=== PATIENT | female | born 1935 | race Caucasian/White ===

== ENCOUNTER 2019-04-07 10:39 | Observation (INO) | payer MEDICARE, BC ==
[2019-04-07] MEDS ORDERED: ACETAMINOPHEN 325 MG TABLET PO ONE (11:46)
--- NOTE | 2019-04-07 11:47 | RADIOLOGY REPORT (SQ) ---
EXAM DESCRIPTION: HIP RIGHT AP/LATERAL COMPLETED DATE/TIME: 04/07/2019 11:29 am REASON FOR STUDY: pain s/p fall COMPARISON: None. NUMBER OF VIEWS: Two views. TECHNIQUE: AP pelvis and additional frog-leg view of the right hip. LIMITATIONS: None. FINDINGS: Bones are osteopenic. Nondisplaced fractures of the right superior and inferior pubic brittanie i. No other fracture identified. No dislocation. IMPRESSION: Right pubic rami fractures. TECHNICAL DOCUMENTATION: JOB ID: [id number] [employer]- All Rights Reserved Reading location - IP/workstation name: [email or web address]
--- NOTE | 2019-04-07 11:50 | ER Document Report ---
ED Fall - General Chief Complaint: Fall Injury Stated Complaint: FALL/RIGHT HIP PAIN/KNEE PAIN Time Seen by Provider: 04/07/19 11:29 Primary Care Provider: OMAR VILLARREAL III, MD [Primary Care Provider] - Follow up as needed Notes: 84-year-old overall healthy female presents to the emergency department after a fall at 2100 last night. Patient states that she was down for several hours and called her kids this morning to let him know that she would not be able to attend [facility]. Her children then went to assess her and deemed that it would be best for EMS to transport her here to the emergency department. Patient does complain of severe pain with any movement. Patient states she is unable to ambulate at all. She is able to sit down but does have pain. Denies any dizziness or lightheadedness, denies being on anticoagulation. Patient does also complain of a skin tear on her left lower anterior leg just distal to the knee. No other complaints - Related data Allergies/Adverse Reactions: Penicillins Allergy (Verified 04/07/19 10:53) Home Medications: synthroid Past Medical History - Social History Smoking Status: Current Every Day Smoker Frequency of alcohol use: None Drug Abuse: None Family History: None Patient has suicidal ideation: No Patient has homicidal ideation: No Past Surgical History: Reports: Hx Hysterectomy, Hx Orthopedic Surgery - R knee, Hx Thyroid Surgery, Hx Tonsillectomy Review of Systems - Review of Systems Constitutional: No symptoms reported EENT: No symptoms reported Cardiovascular: No symptoms reported Respiratory: No symptoms reported Gastrointestinal: No symptoms reported Genitourinary: No symptoms reported Female Genitourinary: No symptoms reported Musculoskeletal: See HPI Skin: See HPI Hematologic/Lymphatic: No symptoms reported Neurological/Psychological: See HPI Physical Exam - Vital signs Vitals: Temp Resp Pulse Ox 97.8 F 16 98 04/07/19 10:40 04/07/19 10:40 04/07/19 10:40 - Notes Notes: PHYSICAL EXAMINATION: Reviewed vital signs and charting by RN GENERAL: Alert, interacts well. No acute distress. HEAD: Normocephalic, atraumatic. EYES: Pupils equal and round. Extraocular movements intact. ENT: Oral mucosa moist, tongue midline. NECK: Full range of motion. Trachea midline. LUNGS: Clear to auscultation bilaterally, no wheezes, rales, or rhonchi. No respiratory distress. HEART: Regular rate and rhythm. No murmur ABDOMEN: soft, non-tender. No distention. Bowel sounds present EXTREMITIES: Moves lower extremities spontaneously secondary to pain, severe pain with light squeezing of the hips, there is a L-shaped skin tear just distal to the knee of the right lower leg, 1+ bilateral DP pulses no edema, No cyanos is. PSYCH: Normal affect, normal mood. SKIN: Warm, dry, normal turgor. No rashes or lesions noted. Course - Re-evaluation Re-evalutation: 04/07/19 12:01 Patient is unable to ambulate and x-ray shows a right inferior and superior pu bic rami fracture that is nondisplaced. I spoke with Dr. Hong who recommended that we admit the patient for pain control and physical therapy since we do not have PT today. I then called Dr. Oseguera, hospitalist, who is going to formally assess the patient. Lab work has been ordered and is pending. Patient is only requesting Tylenol for pain control. 04/07/19 13:45 Lab work all ordered. Dr. Oseguera did accept the patient for admission to the medical floor. - Vital Signs Vital signs: Temp Pulse Resp BP Pulse Ox 97.8 F 85 16 150/56 H 98 04/07/19 10:46 04/07/19 10:46 04/07/19 10:46 04/07/19 10:46 04/07/19 10:46 - Laboratory Result Diagrams: 04/07/19 12:10 04/07/19 12:10 Laboratory results interpreted by me: 04/07/19 04/07/19 12:10 12:10 Hct 35.9 L RDW 14.3 H Lymph % (Auto) 5.9 L Absolute Neuts (auto) 9.0 H Seg Neutrophils % 86.4 H BUN 24 H Glucose 120 H Discharge - Discharge Clinical Impression: Pelvis fracture, right Qualifiers: Encounter type: initial encounter Pelvic bone location: pubis Sublocation of pubis: other portion of pubis Fracture type: closed Qualified Code(s): S32.591A - Other specified fracture of right pubis, initial encounter for closed fracture Condition: Stable Disposition: ADMITTED INPATIENT Admitting Provider: Ana Rosa (Hospitalist) Unit Admitted: Medical Floor Referrals: OMAR VILLARREAL III, MD [Primary Care Provider] - Follow up as needed
[2019-04-07 12:26] LABS: ABSOLUTE LYMPHOCYTES (AUTO) 0.6 10^3/uL (0.5-4.7); ABSOLUTE MONOCYTES (AUTO) 0.8 10^3/uL (0.1-1.4); BASOPHILS % (AUTO) 0.2 % (0-2); HEMATOCRIT 35.9 % (36.0-47.0); HEMOGLOBIN 12.2 g/dL (12.0-15.5); LYMPHOCYTES % (AUTO) 5.9 % (13-45); MEAN CORPUSCULAR HEMOGLOBIN 28.6 pg (27.0-33.4); MEAN CORPUSCULAR HGB CONC 34.1 g/dL (32.0-36.0); MEAN CORPUSCULAR VOLUME 84 fl (80-97); MONOCYTES % (AUTO) 7.5 % (3-13); PLATELET COUNT 177 10^3/uL (150-450); RED BLOOD COUNT 4.28 10^6/uL (3.72-5.28); RED CELL DISTRIBUTION WIDTH 14.3 % (11.5-14.0); SEGMENTED NEUTROPHILS % (AUTO) 86.4 % (42-78); TOTAL CELLS COUNTED % (AUTO) 100 %; WHITE BLOOD COUNT 10.4 10^3/uL (4.0-10.5)
[2019-04-07] MEDS ORDERED: IBUPROFEN 600 MG TABLET PO PRN (12:52)
[2019-04-07 13:06] LABS: ALBUMIN 4.3 g/dL (3.5-5.0); ALKALINE PHOSPHATASE 71 U/L (38-126); ANION GAP 11 (5-19); ASPARTATE AMINO TRANSFERASE 27 U/L (14-36); BILIRUBIN,DIRECT 0.1 mg/dL (0.0-0.4); BILIRUBIN,TOTAL 1.1 mg/dL (0.2-1.3); BLOOD UREA NITROGEN 24 mg/dL (7-20); CALCIUM 9.6 mg/dL (8.4-10.2); CARBON DIOXIDE 25 mmol/L (22-30); CHLORIDE 104 mmol/L (98-107); CREATINE KINASE 117 U/L (30-135); GLUCOSE 120 mg/dL (75-110); POTASSIUM 4.5 mmol/L (3.6-5.0); TOTAL PROTEIN 7.2 g/dL (6.3-8.2)
[2019-04-07] MEDS: ACETAMINOPHEN 325 MG TABLET PO PRN (20:48)
[2019-04-08 03:33] LABS: APPEARANCE,URINE CLEAR; BILIRUBIN,URINE NEGATIVE (NEGATIVE); COLOR,URINE YELLOW; GLUCOSE, URINE NEGATIVE (NEGATIVE); KETONES,URINE NEGATIVE (NEGATIVE); LEUKOCYTE ESTERASE,URINE TRACE (NEGATIVE); NITRITE,URINE NEGATIVE (NEGATIVE); PROTEIN,URINE NEGATIVE (NEGATIVE); URINE SPECIFIC GRAVITY 1.015; UROBILINOGEN,URINE NEGATIVE mg/dL (<2.0)
[2019-04-08] MEDS: ACETAMINOPHEN 325 MG TABLET PO PRN ×2 (07:57→13:09)
[2019-04-08] MEDS: LEVOTHYROXINE SODIUM 0.05 MG TABLET PO SCH (07:58)
--- NOTE | 2019-04-08 11:30 | PDOC H&P ---
History of Present Illness Admission Date/PCP: 04/07/19 13:45 OMAR VILLARREAL III, MD History of Present Illness: BLADE TOPETE is a 84 year old female with no significant PMH who fell at home while trying to put on some pants around 2100 hrs the night before she presented to the ER. She could not get to her phone, and could not get up, so she crawled to a futon where she slept a few hours. Her son came over the next morning and found her standing but she could not walk from pain, so EMS was called and brought her to the ER. She had a nondisplaced right pelvic fracture. She did not want narcotics. She was admitted for pain control and a PT eval. Past Medical History Cardiac Medical History: Denies: Congestive Heart Failure, Myocardial Infarction, Hypertension Pulmonary Medical History: Denies: Asthma, Bronchitis, Chronic Obstructive Pulmonary Disease (COPD), Pneumonia, Tuberculosis Neurological Medical History: Denies: Seizures Renal/ Medical History: Denies: End Stage Renal Disease GI Medical History: Denies: Cirrhosis Musculoskeltal Medical History: Denies: Arthritis Psychiatric Medical History: Denies: Bipolar Disorder, Depression Hematology: Denies: Anemia, Bleeding Tendencies Past Surgical History Past Surgical History: Reports: Hysterectomy, Orthopedic Surgery - R knee, Tonsillectomy Social History Smoking Status: Current Every Day Smoker Drugs: None - Advance Directive Resuscitation Status: Full Code Family History Family History: None Parental Family History Reviewed: Yes Children Family History Reviewed: Yes Sibling(s) Family History Reviewed.: Yes Medication/Allergy Home Medications: Levothyroxine Sodium 50 mcg PO Q6AM 04/07/19 Allergies/Adverse Reactions: Penicillins Allergy (Verified 04/07/19 10:53) Review of Systems All systems: reviewed and no additional remarkable complaints except as stated - all systems were reviewd and were negative except as noted in the HPI Physical Exam Vital Signs: Temp Pulse Resp BP Pulse Ox 98.7 F 69 17 122/42 L 96 04/08/19 07:34 04/08/19 07:34 04/08/19 07:34 04/08/19 07:34 04/08/19 07:34 Intake & Output 04/07/19 04/08/19 04/09/19 06:59 06:59 06:59 Intake Total 210 Balance 210 Weight 33 kg General appearance: PRESENT: no acute distress, cooperative, thin Head exam: PRESENT: atraumatic, normocephalic Eye exam: PRESENT: EOMI, PERRLA. ABSENT: conjunctival injection, nystagmus, scleral icterus Ear exam: PRESENT: normal external ear exam Mouth exam: PRESENT: moist, neck supple Throat exam: ABSENT: post pharyngeal erythema Neck exam: PRESENT: full ROM. ABSENT: carotid bruit, JVD, lymphadenopathy, meningismus, tenderness, thyromegaly Respiratory exam: PRESENT: clear to auscultation silvio, symmetrical, unlabored. ABSENT: accessory muscle use, chest wall tenderness, crackles, prolonged expiratory phas, rhonchi, tachypnea, wheezes Cardiovascular exam: PRESENT: RRR, +S1, +S2 Pulses: PRESENT: normal carotid pulses Vascular exam: PRESENT: normal capillary refill GI/Abdominal exam: PRESENT: normal bowel sounds, soft. ABSENT: distended, guarding, rebound, tenderness Extremities exam: ABSENT: clubbing, pedal edema Musculoskeletal exam: PRESENT: normal inspection, tenderness - palpation of right pelvis. ABSENT: deformity Neurological exam: PRESENT: alert, awake, oriented to person, oriented to place, oriented to time, oriented to situation, CN II-XII grossly intact. ABSENT: motor sensory deficit Psychiatric exam: PRESENT: appropriate affect, normal mood Skin exam: PRESENT: dry, warm Results Laboratory Results: 04/07/19 12:10 04/07/19 12:10 04/07/19 04/07/19 04/07/19 12:10 12:10 12:10 WBC 10.4 RBC 4.28 Hgb 12.2 Hct 35.9 L MCV 84 MCH 28.6 MCHC 34.1 RDW 14.3 H Plt Count 177 Seg Neutrophils % 86.4 H Sodium 139.7 Potassium 4.5 Chloride 104 Carbon Dioxide 25 Anion Gap 11 BUN 24 H Creatinine 0.80 Est GFR ( Amer) > 60 Glucose 120 H Calcium 9.6 Total Bilirubin 1.1 AST 27 Alkaline Phosphatase 71 Total Protein 7.2 Albumin 4.3 Urine Color Urine Appearance Urine pH Ur Specific [place] Urine Protein Urine Glucose (UA) Urine Ketones Urine Blood Urine Nitrite Ur Leukocyte Esterase Urine WBC (Auto) Urine RBC (Auto) Blood Type Cancelled Antibody Screen Cancelled 04/07/19 04/08/19 12:59 02:57 WBC RBC Hgb Hct MCV MCH MCHC RDW Plt Count Seg Neutrophils % Sodium Potassium Chloride Carbon Dioxide Anion Gap BUN Creatinine Est GFR ( Amer) Glucose Calcium Total Bilirubin AST Alkaline Phosphatase Total Protein Albumin Urine Color YELLOW Urine Appearance CLEAR Urine pH 6.0 Ur Specific [place] 1.015 Urine Protein NEGATIVE Urine Glucose (UA) NEGATIVE Urine Ketones NEGATIVE Urine Blood NEGATIVE Urine Nitrite NEGATIVE Ur Leukocyte Esterase TRACE H Urine WBC (Auto) 12 Urine RBC (Auto) 21 Blood Type A POSITIVE Antibody Screen NEGATIVE 04/07/19 12:10 Creatine Kinase 117 Impressions: Hip/Pelvis X-Ray 04/07/19 00:00 IMPRESSION: Right pubic rami fractures. Assessment and Plan - Diagnosis (1) Pelvis fracture, right Qualifiers: Encounter type: initial encounter Pelvic bone location: pubis Sublocation of pubis: other portion of pubis Fracture type: closed Qualified Code(s): S32.591A - Other specified fracture of right pubis, initial encounter for closed fracture Is this a current diagnosis for this admission?: Yes Plan: Conservative treatment. Pain control. WBAT. Was evaluated by orthopedics who recommended this plan. She wants to go home with PT. - Time Time Spent with patient: 35 or more minutes
--- NOTE | 2019-04-08 17:40 | PDOC PROGRESS REPORT ---
Subjective Progress Note for:: 04/08/19 Subjective:: Adverse events overnight. No new complaints. Pain controlled while she is at rest. She worked with physical therapy but PT was concerned about her being home by herself, so the family asked if she could stay here another day in order to make arrangements to have someone with the patient around the clock until she is moving around better. Reason For Visit: PELVIC FRACTURE Physical Exam Vital Signs: Temp Pulse Resp BP Pulse Ox 98.4 F 74 18 138/61 H 98 04/08/19 14:32 04/08/19 14:32 04/08/19 14:32 04/08/19 14:32 04/08/19 14:32 Intake & Output 04/07/19 04/08/19 04/09/19 06:59 06:59 06:59 Intake Total 210 Balance 210 Weight 33 kg General appearance: PRESENT: no acute distress, cooperative, thin Respiratory exam: PRESENT: clear to auscultation silvio, symmetrical, unlabored. ABSENT: accessory muscle use, chest wall tenderness, crackles, prolonged expiratory phas, rhonchi, tachypnea, wheezes Cardiovascular exam: PRESENT: RRR, +S1, +S2 Pulses: PRESENT: normal carotid pulses Vascular exam: PRESENT: normal capillary refill GI/Abdominal exam: PRESENT: normal bowel sounds, soft. ABSENT: distended, guarding, rebound, tenderness Extremities exam: ABSENT: clubbing, pedal edema Musculoskeletal exam: PRESENT: normal inspection. ABSENT: deformity Neurological exam: PRESENT: alert, awake, oriented to person, oriented to place, oriented to situation Psychiatric exam: PRESENT: appropriate affect, normal mood Skin exam: PRESENT: dry, warm Results Laboratory Results: 04/07/19 12:10 04/07/19 12:10 04/08/19 02:57 Urine Color YELLOW Urine Appearance CLEAR Urine pH 6.0 Ur Specific [place] 1.015 Urine Protein NEGATIVE Urine Glucose (UA) NEGATIVE Urine Ketones NEGATIVE Urine Blood NEGATIVE Urine Nitrite NEGATIVE Ur Leukocyte Esterase TRACE H Urine WBC (Auto) 12 Urine RBC (Auto) 21 04/07/19 12:10 Creatine Kinase 117 Impressions: Hip/Pelvis X-Ray 04/07/19 00:00 IMPRESSION: Right pubic rami fractures. Assessment and Plan - Diagnosis (1) Pelvis fracture, right Qualifiers: Encounter type: initial encounter Pelvic bone location: pubis Sublocation of pubis: other portion of pubis Fracture type: closed Qualified Code(s): S32.591A - Other specified fracture of right pubis, initial encounter for closed fracture Is this a current diagnosis for this admission?: Yes Plan: Weightbearing as tolerated per orthopedics. Patient does not want any narc otics. She is okay we will try to control her pain with Tylenol and ibuprofen. Family is trying to arrange for someone to be with her [id number] until she can get around better by herself. We will plan to set her up with home physical therapy. - Time Time Spent with patient: 15-24 minutes
[2019-04-09] MEDS: LEVOTHYROXINE SODIUM 0.05 MG TABLET PO SCH (08:04)
[2019-04-09] MEDS: ACETAMINOPHEN 325 MG TABLET PO PRN (08:54)
[2019-04-09 13:00] VITALS: BP 106/51
--- NOTE | 2019-04-09 17:03 | PDOC DISCHARGE SUMMARY ---
Impression - Admit/DC Date/PCP Admission Date/Primary Care Provider: 04/07/19 13:45 OMAR VILLARREAL III, MD Discharge Date: 04/09/19 - Assessment Summary: 04/09/2019 Was admitted on 04/07/2019 for a pelvis fracture on the right side, this occurred as a result of a fall. Patient was admitted for pain control and PT Bearing as tolerated patient was seen by physical therapy and discharged home today with physical therapy - Additional Information Resuscitation Status: Full Code Discharge Diet: As Tolerated Discharge Activity: Balance Activity w/Rest, No Driving, No Lifting Over 10 Pounds, No Lifting/Push/Pulling, Slowly Increase Activity, Supervised Activity Referrals: OMAR VILLARREAL III, MD [Primary Care Provider] - Follow up as needed (Left Message at office for follow up) Home Medications: Levothyroxine Sodium 50 mcg PO Q6AM 04/07/19 History of Present Illiness History of Present Illness: BLADE TOPETE is a 84 year old female Physical Exam Vital Signs: Temp Pulse Resp BP Pulse Ox 99.6 F 79 18 106/51 L 92 04/09/19 12:56 04/09/19 12:56 04/09/19 12:56 04/09/19 12:56 04/09/19 12:56 Intake & Output 04/08/19 04/09/19 04/10/19 06:59 06:59 06:59 Intake Total 210 960 Balance 210 960 Weight 33 kg 34.7 kg Results Laboratory Results: WBC 10.4 10^3/uL (4.0-10.5) 04/07/19 12:10 RBC 4.28 10^6/uL (3.72-5.28) 04/07/19 12:10 Hgb 12.2 g/dL (12.0-15.5) 04/07/19 12:10 Hct 35.9 % (36.0-47.0) L 04/07/19 12:10 MCV 84 fl (80-97) 04/07/19 12:10 MCH 28.6 pg (27.0-33.4) 04/07/19 12:10 MCHC 34.1 g/dL (32.0-36.0) 04/07/19 12:10 RDW 14.3 % (11.5-14.0) H 04/07/19 12:10 Plt Count 177 10^3/uL (150-450) 04/07/19 12:10 Lymph % (Auto) 5.9 % (13-45) L 04/07/19 12:10 [place] % (Auto) 7.5 % (3-13) 04/07/19 12:10 Eos % (Auto) 0.0 % (0-6) 04/07/19 12:10 Baso % (Auto) 0.2 % (0-2) 04/07/19 12:10 Absolute Neuts (auto) 9.0 10^3/uL (1.7-8.2) H 04/07/19 12:10 Absolute Lymphs (auto) 0.6 10^3/uL (0.5-4.7) 04/07/19 12:10 Absolute Monos (auto) 0.8 10^3/uL (0.1-1.4) 04/07/19 12:10 Absolute Eos (auto) 0.0 10^3/uL (0.0-0.6) 04/07/19 12:10 Absolute Basos (auto) 0.0 10^3/uL (0.0-0.2) 04/07/19 12:10 Seg Neutrophils % 86.4 % (42-78) H 04/07/19 12:10 Sodium 139.7 mmol/L (137-145) 04/07/19 12:10 Potassium 4.5 mmol/L (3.6-5.0) 04/07/19 12:10 Chloride 104 mmol/L (98-107) 04/07/19 12:10 Carbon Dioxide 25 mmol/L (22-30) 04/07/19 12:10 Anion Gap 11 (5-19) 04/07/19 12:10 BUN 24 mg/dL (7-20) H 04/07/19 12:10 Creatinine 0.80 mg/dL (0.52-1.25) 04/07/19 12:10 Est GFR ( Amer) > 60 (>60) 04/07/19 12:10 Est GFR (MDRD) Non-Af > 60 (>60) 04/07/19 12:10 Glucose 120 mg/dL (75-110) H 04/07/19 12:10 Calcium 9.6 mg/dL (8.4-10.2) 04/07/19 12:10 Total Bilirubin 1.1 mg/dL (0.2-1.3) 04/07/19 12:10 Direct Bilirubin 0.1 mg/dL (0.0-0.4) 04/07/19 12:10 Neonat Total Bilirubin Not Reportable 04/07/19 12:10 Neonat Direct Bilirubin Not Reportable 04/07/19 12:10 Neonat Indirect Bili Not Reportable 04/07/19 12:10 AST 27 U/L (14-36) 04/07/19 12:10 ALT 15 U/L (<35) 04/07/19 12:10 Alkaline Phosphatase 71 U/L (38-126) 04/07/19 12:10 Creatine Kinase 117 U/L (30-135) 04/07/19 12:10 Total Protein 7.2 g/dL (6.3-8.2) 04/07/19 12:10 Albumin 4.3 g/dL (3.5-5.0) 04/07/19 12:10 Urine Color YELLOW 04/08/19 02:57 Urine Appearance CLEAR 04/08/19 02:57 Urine pH 6.0 (5.0-9.0) 04/08/19 02:57 Ur Specific [place] 1.015 04/08/19 02:57 Urine Protein NEGATIVE mg/dL (NEGATIVE) 04/08/19 02:57 Urine Glucose (UA) NEGATIVE mg/dL (NEGATIVE) 04/08/19 02:57 Urine Ketones NEGATIVE mg/dL (NEGATIVE) 04/08/19 02:57 Urine Blood NEGATIVE (NEGATIVE) 04/08/19 02:57 Urine Nitrite NEGATIVE (NEGATIVE) 04/08/19 02:57 Urine Bilirubin NEGATIVE (NEGATIVE) 04/08/19 02:57 Urine Urobilinogen NEGATIVE mg/dL (<2.0) 04/08/19 02:57 Ur Leukocyte Esterase TRACE (NEGATIVE) H 04/08/19 02:57 Urine WBC (Auto) 12 /HPF 04/08/19 02:57 Urine RBC (Auto) 21 /HPF 04/08/19 02:57 U Hyaline Cast (Auto) 1 /LPF 04/08/19 02:57 Urine Mucus (Auto) RARE /LPF 04/08/19 02:57 Urine Ascorbic Acid NEGATIVE (NEGATIVE) 04/08/19 02:57 Blood Type A POSITIVE 04/07/19 12:59 Antibody Screen NEGATIVE 04/07/19 12:59 Impressions: Hip/Pelvis X-Ray 04/07/19 00:00 IMPRESSION: Right pubic rami fractures. Stroke Is this a Stroke Patient?: No Acute Heart Failure - Is this a Heart Failure Patient?: No
== END 2019-04-09 13:43 | disposition home health service (06) ==
LOC: ER 10:39 → EH 13:45 → 4N 18:47
PROVIDERS: ADMIT Family Medicine; ATTEND Family Medicine
DX: S32.591A Other specified fracture of right pubis, initial encounter for closed fracture (principal); S81.812A Laceration without foreign body, left lower leg, initial encounter; S81.811A Laceration without foreign body, right lower leg, initial encounter; W19.XXXA Unspecified fall, initial encounter; Y92.009 Unspecified place in unspecified non-institutional (private) residence as the place of occurrence of the external cause; F17.200 Nicotine dependence, unspecified, uncomplicated; Z60.2 Problems related to living alone; Z98.890 Other specified postprocedural states
CPT/HCPCS: 99284; 86900; 86901; 36415; 86850; 82550; 85025; 80053; 81001; 73502; 97530 ×2; 97110; 97116 ×2; 97163; A9270 ×5; J3490 ×3; G0378